=== PATIENT | male | born 1985 | race Caucasian/White ===

== ENCOUNTER 2021-05-25 22:03 | Inpatient (IN) | payer MEDICAID ==
[~2021-05-25] VITALS: Ht 190.5 cm; Wt 96.8 kg
[2021-05-25] MEDS ORDERED: ZOLPIDEM TARTRATE 10 MG TABLET PO PRN (22:45)
[2021-05-25] MEDS ORDERED: OLANZapine 5 MG RAPDIS TABLET PO PRN (22:45)
[2021-05-25] MEDS ORDERED: LORazepam 2 MG TABLET PO PRN (22:45)
[2021-05-25 23:28] LABS: COVID AG,FIA SOURCE NASAL SWAB
[2021-05-25 23:28] LABS: BASOPHILS % (AUTO) 0.9 % (0.0-2.0); EOSINOPHILS % (AUTO) 4.4 % (1.0-6.0); HEMATOCRIT 42.2 % (41-53); HEMOGLOBIN 14.3 g/dL (13.5-17.5); LYMPHOCYTES # (AUTO) 1.6 K/uL (1.0-4.8); LYMPHOCYTES % (AUTO) 38.3 % (22.0-44.0); MEAN CORPUSCULAR HEMOGLOBIN 30.7 pg (26.0-34.0); MEAN CORPUSCULAR VOLUME 90 fL (80-100); MONOCYTES # (AUTO) 0.6 K/uL (0.1-1.0); MONOCYTES % (AUTO) 13.8 % (2.0-9.0); NEUTROPHILS # (AUTO) 1.8 K/uL (1.8-7.7); NEUTROPHILS % (AUTO) 42.6 % (40.0-70.0); PLATELET COUNT (AUTO) 157 K/uL (150-450); RED BLOOD CELL COUNT(AUTO) 4.67 MIL/uL (4.50-5.90); RED CELL DISTRIBUTION WIDTH 13.5 % (11.5-14.5)
[2021-05-25 23:31] LABS: APPEARANCE,URINE CLEAR (CLEAR); BILIRUBIN,URINE PRELIM. POSITIVE (NEGATIVE); GLUCOSE, URINE (UA) NEGATIVE (NEGATIVE); KETONES,URINE 15 mg/dL (NEGATIVE); LEUKOCYTE ESTERASE ,URINE NEGATIVE (NEGATIVE); NITRATE,URINE NEGATIVE (NEGATIVE); OCCULT BLOOD,URINE NEGATIVE (NEGATIVE); PH,URINE 6.5 (5.0-8.0); PROTEIN,URINE NEGATIVE (NEGATIVE)
[2021-05-25 23:36] LABS: ANION GAP 8 mmol/L (8-16); CALCIUM, TOTAL 9.3 mg/dL (8.8-10.5); CARBON DIOXIDE 31 mmol/L (22-29); CHLORIDE 105 mmol/L (98-107); CREATININE 0.98 mg/dL (0.60-1.30); GLOMERULAR FILTR. RATE CALC > 60 mL/min (>60); GLUCOSE,RANDOM 92 mg/dL (70-110); POTASSIUM 3.7 mmol/L (3.5-5.1); SODIUM SERUM 144 mmol/L (136-145); UREA NITROGEN, BLOOD 19 mg/dL (7-18)
[2021-05-25 23:36] LABS: AMPHET/METH SCREEN,URINE POSITIVE (NEGATIVE); BARBITURATE SCREEN, URINE NEGATIVE (NEGATIVE); BENZODIAZEPINES SCREEN,URINE NEGATIVE (NEGATIVE); CANNABINOID SCREEN,URINE NEGATIVE (NEGATIVE); COCAINE SCREEN,URINE NEGATIVE (NEGATIVE); METHADONE SCREEN, URINE NEGATIVE (NEGATIVE); OPIATE SCREEN,URINE NEGATIVE (NEGATIVE)
[2021-05-25 23:38] LABS: PHENCYCLIDINE SCREEN,URINE NEGATIVE (NEGATIVE)
[2021-05-25 23:42] LABS: ALANINE AMINOTRANSFERASE 28 U/L (12-78); ALBUMIN 4.1 g/dL (3.4-5.0); ALKALINE PHOSPHATASE 62 U/L (46-116); ASPARTATE AMINOTRANSFERASE 22 U/L (15-37); BILIRUBIN,TOTAL 0.5 mg/dL (0.1-1.0); TOTAL PROTEIN, SERUM 7.4 g/dL (6.4-8.2)
[2021-05-26 04:37] LABS: CHOL/HDL RATIO 2.6 (4.2-7.3); CHOLESTEROL 127 mg/dL (131-200); HDL CHOLESTEROL 48 mg/dL (40-60); LDL CHOL (CALC.) 65 mg/dL (0-130); TRIGLYCERIDES 72 mg/dL (15-150)
[2021-05-26 10:36] VITALS: BP 102/60
[2021-05-26] MEDS ORDERED: INFLUENZA VIRUS VACCINE QVS 2021-22 (6MO+)/PF 60 MCG/0.5 ML SYRINGE IM. ONE (11:00)
[2021-05-26 11:14] VITALS: BP 102/60
[2021-05-26 16:26] VITALS: BP 107/71
[2021-05-27 10:30] VITALS: BP 114/82
[2021-05-27 16:58] VITALS: BP 105/63
[2021-05-27 16:59] VITALS: BP 105/63
[2021-05-27] MEDS ORDERED: ACETAMINOPHEN 325 MG TABLET PO PRN (19:00)
[2021-05-27] MEDS ORDERED: MAGNESIUM HYDROXIDE SUSPENSION 30 ML UDCUP PO PRN (19:00)
[2021-05-27] MEDS ORDERED: OLANZapine 5 MG RAPDIS TABLET PO ONE (19:00)
[2021-05-27] MEDS ORDERED: LOPERAMIDE HCL 2 MG CAPSULE PO PRN (19:00)
[2021-05-27] MEDS ORDERED: PROMETHAZINE HCL 25 MG TABLET PO PRN (19:00)
[2021-05-27] MEDS ORDERED: PALIPERIDONE PALMITATE 234 MG/1.5 ML SYRINGE IM ONE (19:00)
[2021-05-27] MEDS ORDERED: HydrOXYzine PAMOATE 50 MG CAPSULE PO PRN (19:00)
[2021-05-27] MEDS ORDERED: GuaiFENesin/D-METHORPHAN [SUGAR-FREE] 200-20MG/10 ML SYRUP UDCUP PO PRN (19:00)
[2021-05-27] MEDS ORDERED: MAG HYDROX/AL HYDROX/SIMETH ES 30 ML SUSPENSION UDCUP PO PRN (19:00)
[2021-05-27] MEDS ORDERED: TUBERCULIN, PURIFIED PROTEIN DERIVATIVE 5 TU/0.1 ML SYRINGE ID ONE (19:00)
[2021-05-27] MEDS: MELATONIN 5 MG TABLET PO SCH (20:44)
[2021-05-27] MEDS ORDERED: OLANZapine 5 MG RAPDIS TABLET PO SCH (21:00)
[2021-05-28 08:00] VITALS: BP 112/73
[2021-05-28 08:16] LABS: CHOL/HDL RATIO 2.8 (4.2-7.3); FREE T4 (FREE THYROXINE) 0.93 ng/dL (0.76-1.46); THYROID STIMULATING HORMONE 0.54 uIU/mL (0.36-3.74)
[2021-05-28 08:17] LABS: HEMOGLOBIN A1C 5.5 % (3.8-5.6)
[2021-05-28] MEDS: FOLIC ACID 1 MG TABLET PO SCH (09:39)
[2021-05-28] MEDS: OMEGA-3/DHA/EPA/FISH OIL 1,000 MG CAPSULE PO SCH (09:39)
[2021-05-28] MEDS: THIAMINE 100 MG TABLET PO SCH ×2 (09:39→16:24)
[2021-05-28] MEDS: MULTIVITAMINS WITH MINERALS, THERAPEUTIC TABLET PO SCH (09:40)
[2021-05-28] MEDS: NALTREXONE HCL 50 MG TABLET PO SCH (09:40)
[2021-05-28 16:46] VITALS: BP 98/70
[2021-05-28] MEDS: MELATONIN 5 MG TABLET PO SCH (20:40)
[2021-05-28] MEDS ORDERED: OLANZapine 5 MG RAPDIS TABLET PO SCH (21:00)
[2021-05-29] MEDS: MULTIVITAMINS WITH MINERALS, THERAPEUTIC TABLET PO SCH (08:45)
[2021-05-29] MEDS: FOLIC ACID 1 MG TABLET PO SCH (08:45)
[2021-05-29] MEDS: NALTREXONE HCL 50 MG TABLET PO SCH (08:45)
[2021-05-29] MEDS: OMEGA-3/DHA/EPA/FISH OIL 1,000 MG CAPSULE PO SCH (08:45)
[2021-05-29] MEDS: THIAMINE 100 MG TABLET PO SCH ×2 (08:45→16:11)
[2021-05-29 08:53] VITALS: BP 147/82
[2021-05-29 16:00] VITALS: BP 109/71
[2021-05-29] MEDS: MELATONIN 5 MG TABLET PO SCH (20:16)
[2021-05-30 09:09] VITALS: BP 115/75
[2021-05-30] MEDS: MULTIVITAMINS WITH MINERALS, THERAPEUTIC TABLET PO SCH (09:28)
[2021-05-30] MEDS: FOLIC ACID 1 MG TABLET PO SCH (09:28)
[2021-05-30] MEDS: THIAMINE 100 MG TABLET PO SCH ×2 (09:28→17:30)
[2021-05-30] MEDS: NALTREXONE HCL 50 MG TABLET PO SCH (09:28)
[2021-05-30] MEDS: OMEGA-3/DHA/EPA/FISH OIL 1,000 MG CAPSULE PO SCH (09:28)
[2021-05-30 16:35] VITALS: BP 110/80
[2021-05-30] MEDS: MELATONIN 5 MG TABLET PO SCH (21:30)
[2021-05-31 08:35] VITALS: BP 125/73
[2021-05-31] MEDS ORDERED: PALIPERIDONE PALMITATE 156 MG/ML SYRINGE IM ONE (09:00)
[2021-05-31] MEDS: OMEGA-3/DHA/EPA/FISH OIL 1,000 MG CAPSULE PO SCH (09:14)
[2021-05-31] MEDS: THIAMINE 100 MG TABLET PO SCH ×2 (09:14→17:19)
[2021-05-31] MEDS: MULTIVITAMINS WITH MINERALS, THERAPEUTIC TABLET PO SCH (09:14)
[2021-05-31] MEDS: FOLIC ACID 1 MG TABLET PO SCH (09:14)
[2021-05-31] MEDS: NALTREXONE HCL 50 MG TABLET PO SCH (09:14)
[2021-05-31 12:28] LABS: COVID AG,FIA SOURCE NASAL SWAB
[2021-05-31 16:33] VITALS: BP 130/99
[2021-05-31] MEDS: NICOTINE POLACRILEX 2 MG LOZENGE PO PRN (17:46)
[2021-05-31] MEDS: MELATONIN 5 MG TABLET PO SCH (21:18)
[2021-06-01 08:00] VITALS: BP 132/94
[2021-06-01] MEDS: OMEGA-3/DHA/EPA/FISH OIL 1,000 MG CAPSULE PO SCH (08:57)
[2021-06-01] MEDS: THIAMINE 100 MG TABLET PO SCH ×2 (08:58→17:28)
[2021-06-01] MEDS: MULTIVITAMINS WITH MINERALS, THERAPEUTIC TABLET PO SCH (08:58)
[2021-06-01] MEDS: NICOTINE POLACRILEX 2 MG LOZENGE PO PRN ×2 (08:58→14:43)
[2021-06-01] MEDS: FOLIC ACID 1 MG TABLET PO SCH (08:58)
[2021-06-01] MEDS: NALTREXONE HCL 50 MG TABLET PO SCH (08:58)
[2021-06-01] MEDS ORDERED: NICOTINE 21 MG/24 HOUR PATCH TD SCH (09:00)
[2021-06-01 16:00] VITALS: BP 109/69
[2021-06-01] MEDS: MELATONIN 5 MG TABLET PO SCH (20:56)
[2021-06-02 08:07] VITALS: BP 114/72
[2021-06-02] MEDS: MULTIVITAMINS WITH MINERALS, THERAPEUTIC TABLET PO SCH (09:09)
[2021-06-02] MEDS: FOLIC ACID 1 MG TABLET PO SCH (09:09)
[2021-06-02] MEDS: THIAMINE 100 MG TABLET PO SCH ×2 (09:09→16:16)
[2021-06-02] MEDS: OMEGA-3/DHA/EPA/FISH OIL 1,000 MG CAPSULE PO SCH (09:09)
[2021-06-02] MEDS: NALTREXONE HCL 50 MG TABLET PO SCH (09:09)
[2021-06-02] MEDS: NICOTINE POLACRILEX 2 MG LOZENGE PO PRN ×3 (09:10→18:37)
[2021-06-02] MEDS ORDERED: MELA5TAB40 PO (15:44)
[2021-06-02] MEDS ORDERED: NALT50TA PO (15:44)
[2021-06-02] MEDS ORDERED: OMEG-135 PO (15:44)
[2021-06-02] MEDS ORDERED: PALI117D IM (15:44)
[2021-06-02] MEDS: MELATONIN 5 MG TABLET PO SCH (20:06)
[2021-06-03] MEDS: NICOTINE POLACRILEX 2 MG LOZENGE PO PRN ×2 (08:28→13:20)
[2021-06-03] MEDS: MULTIVITAMINS WITH MINERALS, THERAPEUTIC TABLET PO SCH (08:29)
[2021-06-03] MEDS: THIAMINE 100 MG TABLET PO SCH (08:29)
[2021-06-03] MEDS: NALTREXONE HCL 50 MG TABLET PO SCH (08:29)
[2021-06-03] MEDS: FOLIC ACID 1 MG TABLET PO SCH (08:29)
[2021-06-03] MEDS: OMEGA-3/DHA/EPA/FISH OIL 1,000 MG CAPSULE PO SCH (08:29)
[2021-06-03 08:32] VITALS: BP 130/91
[2021-06-05 07:06] LABS: HIV 1-2 SCREEN 4TH GEN W/RFLX Preliminary Reactive (Non Reactive); HIV INTERPRETATION HIV-1 Positive; HIV-1 ANTIBODY(MULTISPOT) Reactive (Non Reactive); HIV-2 ANTIBODY(MULTISPOT) Non Reactive (Non Reactive)
== END 2021-06-03 16:12 | disposition home or self-care (01) | DRG 750 ==
LOC: EMS 22:09 → 3EI 05-26 07:06
PROVIDERS: ADMIT Psychiatry & Neurology Psychiatry; ATTEND Psychiatry & Neurology Psychiatry
DX: F25.9 Schizoaffective disorder, unspecified (principal); F33.2 Major depressive disorder, recurrent severe without psychotic features; R45.851 Suicidal ideations; Z59.00 Homelessness unspecified; Z91.19 Patient's noncompliance with other medical treatment and regimen; Z20.822 Contact with and (suspected) exposure to COVID-19; F41.9 Anxiety disorder, unspecified; Z55.9 Problems related to education and literacy, unspecified; Z59.9 Problem related to housing and economic circumstances, unspecified; Z63.9 Problem related to primary support group, unspecified; Z65.3 Problems related to other legal circumstances
CPT/HCPCS: 80053; 80061; 81003; 83036; 84439; 84443; 85025; 86592; 86701; 86702; 87389; 99285; G0480; Q9967